=== PATIENT | male | born 1975 | race Caucasian/White ===

== ENCOUNTER → 2017-10-15 | Outpatient (CLI) | payer BC ==
[2017-10-15 08:30] LABS: BASOPHILS % (AUTO) 0 % (0-10); EOSINOPHILS # (AUTO) 0.2 10^3/uL (0.0-0.3); EOSINOPHILS % (AUTO) 2 % (0-10); HEMATOCRIT 45 % (40-54); HEMOGLOBIN 15.4 G/DL (13.3-17.7); LYMPHOCYTES # (AUTO) 1.7 X 10^3 (1.0-4.0); LYMPHOCYTES % (AUTO) 20 % (12-44); MEAN CORPUSCULAR HEMOGLOBIN 31 PG (25-34); MEAN CORPUSCULAR HGB CONC 35 G/DL (32-36); MEAN CORPUSCULAR VOLUME 91 FL (80-99); MEAN PLATELET VOLUME 8.7 FL (7.4-10.4); MONOCYTES # (AUTO) 0.6 X 10^3 (0.0-1.0); MONOCYTES % (AUTO) 7 % (0-12); NEUTROPHILS % (AUTO) 71 % (42-75); PLATELET COUNT 196 10^3/uL (130-400); RED BLOOD COUNT 4.94 10^6/uL (4.35-5.85); WHITE BLOOD COUNT 8.5 10^3/uL (4.3-11.0)
[2017-10-15 08:55] LABS: ALANINE AMINOTRANSFERASE 24 U/L (0-55); ALBUMIN 4.2 GM/DL (3.2-4.5); ALKALINE PHOSPHATASE 66 U/L (40-136); BILIRUBIN,TOTAL 0.4 MG/DL (0.1-1.0); BUN/CREATININE RATIO 36; CALCIUM 9.1 MG/DL (8.5-10.1); CARBON DIOXIDE 24 MMOL/L (21-32); CHLORIDE 111 MMOL/L (98-107); CHOLESTEROL 181 MG/DL (< 200); CREATININE SERUM 0.73 MG/DL (0.60-1.30); GFR ESTIMATED > 60; GLUCOSE 98 MG/DL (70-105); HDL CHOLESTEROL 39 MG/DL (40-60); POTASSIUM 4.3 MMOL/L (3.6-5.0); SODIUM 140 MMOL/L (135-145); TOTAL PROTEIN 6.9 GM/DL (6.4-8.2); TRIGLYCERIDES 113 MG/DL (<150); VLDL CHOLESTEROL 23 MG/DL (5-40)
== END ==
LOC: LAB 07:52
PROVIDERS: ATTEND Nurse Practitioner Family
DX: G80.1 Spastic diplegic cerebral palsy (principal); F33.0 Major depressive disorder, recurrent, mild; F41.1 Generalized anxiety disorder; Z72.0 Tobacco use
CPT/HCPCS: 36415; 80053; 80061; 84443; 85025

== ENCOUNTER → 2018-11-26 | Outpatient (CLI) | payer BC ==
--- NOTE | 2018-11-26 09:12 | Diagnostic Imaging Report ---
INDICATION: Pain along the lateral aspect of the right foot. 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 There is moderate degenerative disease. No fractures or acute bony changes are demonstrated. No periosteal reactive changes. IMPRESSION: Clubfoot deformity as described with no acute abnormalities. Moderate degenerative change is noted along the fifth metatarsal/tarsal joint with some subluxation. Dictated by: Dictated on workstation # [id number]
== END ==
LOC: RAD 08:26
PROVIDERS: ATTEND Nurse Practitioner Family
DX: M21.541 Acquired clubfoot, right foot (principal); M19.071 Primary osteoarthritis, right ankle and foot; S93.301A Unspecified subluxation of right foot, initial encounter
CPT/HCPCS: 73630

== ENCOUNTER 2018-12-27 21:00 | Emergency (ER) | payer BC ==
[~2018-12-27] VITALS: Ht 177.8 cm; Wt 34.5 kg
[2018-12-27] MEDS ORDERED: IBUP-1780 (21:21)
[2018-12-27] MEDS ORDERED: LIDOCAINE 1% INJ 20 ML 20 ML VIAL INJ STA (21:21)
[2018-12-27] MEDS ORDERED: DIAZ5TAB3 (21:21)
[2018-12-27] MEDS ORDERED: PARO20TA5 (21:21)
[2018-12-27] MEDS ORDERED: RANI150T11 (21:21)
[2018-12-27] MEDS ORDERED: TRAM50TA2 (21:21)
[2018-12-27] MEDS ORDERED: MIRT15TA6 (21:21)
--- NOTE | 2018-12-27 21:22 | NUR ---
left temporal wound cleansed with hibiclens and saline. pt tolerated well
--- NOTE | 2018-12-27 21:28 | ED Fall/Injury ---
General Chief Complaint: Laceration Stated Complaint: PT FELL AT HOME Nursing Triage Note: pt fell from standing position on front porch after getting legs tangled, no loc, no bleeding upon arrival to ed Source: patient, EMS History of Present Illness Date Seen by Provider: Dec 27, 2018 Time Seen by Provider: 21:02 Initial Comments 43-year-old male presenting with laceration to his left parietal scalp after a fall on his porch at home. He presents by EMS after having that fall and injury. He denies having any loss of consciousness. The fall occurred just prior to arrival. He had hit his head against a brick that was on the porch. He has no nausea or vomiting. He has no change in his vision. He feels that his last tetanus shot was more than 5 years ago. He has no other injuries from the fall. He has no drainage from his nose or ears. Allergies and Home Medications Allergies Coded Allergies: No Known Drug Allergies (Unverified , 12/27/18) Patient Home Medication List Home Medication List Reviewed: Yes Review of Systems Review of Systems Constitutional: No chills, No dizziness, No fever Eyes: Denies Blurred Vision, Denies Photophobia, Denies Vision Changes Ears, Nose, Mouth, Throat: denies ear pain, denies ear discharge, denies nose discharge, denies epistaxis Respiratory: no symptoms reported Cardiovascular: no symptoms reported Gastrointestinal: no symptoms reported; No nausea, No vomiting Genitourinary: no symptoms reported Musculoskeletal: other (chronic foot pain but nothing new since the fall) Skin: other (scalp laceration) Psychiatric/Neurological: Headache (mild headache from the fall) Past Kezfqli-Zjujjk-Huiiac Hx Past Med/Social Hx: Reviewed Nursing Past Med/Soc Hx Patient Social History Alcohol Use: Occasionally Uses Recreational Drug Use: No Smoking Status: Current Everyday Smoker Type Used: Cigarettes Recent Foreign Travel: No Contact w/Someone Who Travel: No Recent Infectious Disease Expo: No Recent Hopitalizations: No Physical Abuse: No Sexual Abuse: No Mistreated: No Fear: No Seasonal Allergies Seasonal Allergies: No Past Medical History Surgeries: No Respiratory: No Cardiac: No Neurological: Yes Cerebral Palsy Genitourinary: No Gastrointestinal: No Musculoskeletal: No Endocrine: No HEENT: No Cancer: No Psychosocial: No Integumentary: No Blood Disorders: No Physical Exam Vital Signs Vital Signs - First Documented 12/27/18 21:12 Temp 37.0 Pulse 66 Resp 16 B/P (MAP) 130/80 (97) Pulse Ox 98 O2 Delivery Room Air Capillary Refill : Less Than 3 Seconds Height, Weight, BMI Height: '" Weight: lbs. oz. kg; 10.00 BMI Method: General Appearance: WD/WN, no apparent distress HEENT: PERRL/EOMI, normal ENT inspection, TMs normal, pharynx normal, other (2.9 cm scalp laceration to the left parietal scalp) Neck: non-tender, full range of motion, supple, normal inspection Neurologic/Psychiatric: alert, normal mood/affect, oriented x 3 Skin: warm/dry, other (2.9 cm scalp laceration to the left parietal scalp) Procedures/Interventions Wound Location: Scalp (left parietal) Wound Length (cm): 2.9 Wound's Depth, Shape: sub Q Wound Explored: clean Anesthesia: 1% Lidocaine Volume Anesthetic (ccs): 10 Staple Repair: Stapler 35W Number of Sutures: 8 Layer Closure?: 1 Progress After obtaining verbal consent the wound was anesthetized with 1% plain lidocaine. Then using sterile saline and chlorhexidine soap the wound was cleaned. Then using a stapler the wound edges were approximated with 8 interrupted shailesh. He tolerated the procedure well without any immediate complications. Counseled on care of the shailesh and wound. Recommend staple removal in 7-10 days. Progress/Results/Core Measures Results/Orders My Orders Orders - FRANCO PAGAN MD Lidocaine 1% Inj 20 Ml (Xylocaine 1% Inj (12/27/18 21:21) Dipht,Pertuss(Acell),Tet Adult (Boostrix (12/27/18 21:30) Head Of Bed Q4H (12/27/18 21:21) Medications Given in ED Current Medications Medications Dose Ordered Sig/Etienne Route Start Time Stop Time Status Last Admin Dose Admin Diphtheria/ Tetanus/Acell Pertussis 0.5 ml ONCE ONCE IM 12/27/18 21:30 12/27/18 21:31 DC 12/27/18 21:30 0.5 ML Vital Signs/I&O 12/27/18 12/27/18 21:12 22:10 Temp 37.0 Pulse 66 61 Resp 16 16 B/P (MAP) 130/80 (97) 131/83 Pulse Ox 98 96 O2 Delivery Room Air Room Air Blood Pressure Mean: 97 Progress Progress Note : Progress Note Wound was cleaned with chlorhexidine and sterile water. No foreign bodies visualized. After obtaining verbal consent the wound was anesthetized with 1% plain lidocaine. Then using a skin stapler the wound edges were approximated and sealed with shailesh. Departure Impression Primary Impression: Laceration of scalp without foreign body Qualified Codes: S01.01XA - Laceration without foreign body of scalp, in itial encounter Additional Impression: Fall at home Qualified Codes: W19.XXXA - Unspecified fall, initial encounter; Y92.009 - Unspecified place in unspecified non-institutional (private) residence as the place of occurrence of the external cause Disposition: HOME, SELF-CARE Condition: Stable Departure-Patient Inst. Decision time for Depature: 22:00 Referrals: MAEVE GODFREY MD (PCP/Family) Primary Care Physician Patient Instructions: Laceration Repair With Shailesh (DC), Diphtheria and Tetanus Toxoids, and Acellular Pertussis Vaccine Add. Discharge Instructions: Keep wound clean and dry for the first 24 hours. After that you may wash it like normal but do not soak it. You may apply antibiotic ointment 2-3 times a day as needed to help it heal. The shailesh can be removed in 7-10 days. Try to keep your head elevated when you sleep or rest for the next 2-3 days to help prevent swelling and bruising. You may apply ice for 15-20 minutes every few hours as needed to help with pain and swelling as well. All discharge instructions reviewed with patient and/or family. Voiced understanding. FRANCO PAGAN MD Dec 27, 2018 21:28
[2018-12-27] MEDS ORDERED: TETANUS,DIPTH,PERTUSS P/F (BOOSTRIX) 0.5 ML VIAL IM ONE (21:30)
[2018-12-27 22:10] VITALS: BP 131/83
== END 2018-12-27 22:10 | disposition home or self-care (01) ==
LOC: EDUNIT# 21:00 → ER FS 21:04
DX: S01.01XA Laceration without foreign body of scalp, initial encounter (principal); G80.9 Cerebral palsy, unspecified; F17.210 Nicotine dependence, cigarettes, uncomplicated; Z23 Encounter for immunization; W22.8XXA Striking against or struck by other objects, initial encounter; W19.XXXA Unspecified fall, initial encounter; Y92.009 Unspecified place in unspecified non-institutional (private) residence as the place of occurrence of the external cause
CPT/HCPCS: 90715

== ENCOUNTER 2019-01-05 17:59 | Emergency (ER) | payer BC ==
[~2019-01-05] VITALS: Ht 177.8 cm; Wt 34.5 kg
[~2019-01-05 17:59] MED LIST: DIAZ5TAB3; IBUP-1780; MIRT15TA6; PARO20TA5; RANI150T11; TRAM50TA2
[2019-01-05 18:15] VITALS: BP 117/80
--- NOTE | 2019-01-05 18:15 | ED Suture Removal/Wound Check ---
Suture/Wound Re-check Suture Removal/Wound Recheck : Suture Removal/Wound Recheck: Swathi removed by RN Progress Swathi placed 9 days ago when patient had a fall on his porch and came to the ED. I had seen him that night and placed 8 swathi. He has had no problems or complaints. He presents tonight to have them removed. General Appearance: WD/WN, no apparent distress Neuro/Tendon: normal sensation, normal motor functions Skin Exam: normal color, warm/dry Physical Exam Vital Signs Capillary Refill : General Appearance: WD/WN, no apparent distress HEENT: other (wound appears well healed without erythema or signs of infection) Neurologic/Psychiatric: alert, normal mood/affect, oriented x 3 Skin: normal color, warm/dry Departure Impression Primary Impression: Encounter for staple removal Disposition: 01 HOME, SELF-CARE Condition: Stable Departure-Patient Inst. Decision time for Depature: 18:17 Referrals: MAEVE GODFREY MD (PCP) Primary Care Physician Patient Instructions: STAPLE REMOVAL-UNCOMPLICATED FRANCO PAGAN MD Jan 05, 2019 18:14
== END 2019-01-05 18:15 | disposition home or self-care (01) ==
LOC: EDUNIT# 17:59 → ER FS 18:01
DX: S01.81XD Laceration without foreign body of other part of head, subsequent encounter (principal); W19.XXXD Unspecified fall, subsequent encounter

== ENCOUNTER → 2019-04-10 | Outpatient (CLI) | payer BC ==
[~2019-04-10] MED LIST changes: -DIAZ5TAB3; +DIAZ5TAB49; -TRAM50TA2; +TRM50T
--- NOTE | 2019-04-10 09:44 | Diagnostic Imaging Report ---
PROCEDURE: CT right lower extremity without contrast. TECHNIQUE: Axially acquired CT was obtained through the right lower extremity without intravenous contrast. Coronal and sagittal reformations were also performed. Auto Exposure Controls were utilized during the CT exam to meet ALARA standards for radiation dose reduction. INDICATION: Right foot fracture since November. Continued pain. Cavovarus deformity of the foot. COMPARISON: Radiographs from 11/26/2018 FINDINGS: The cavovarus deformity of the right foot is again seen. There is a chronic appearing mildly displaced fracture at the base of the fifth metatarsal, with degenerative changes between the fracture fragment and the cuboid. The fracture appears to extend into the articular surface. There is also a chronic appearing nondisplaced fracture at the medial talus at the posterior subtalar joint. No acute fracture or dislocation is seen. No focal muscular atrophy is seen. There is mild superficial soft tissue edema at the dorsal aspect of the midfoot and forefoot. The tendons and ligaments are suboptimally evaluated by CT. IMPRESSION: 1. Chronic-appearing mildly displaced intra-articular fracture at the base of the right fifth metatarsal, with degenerative change between the fracture fragment in the cuboid. 2. Chronic appearing nondisplaced fracture of the medial talus at the posterior subtalar joint. 3. 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 No acute fracture is identified. Dictated by: Dictated on workstation # [id number]
== END ==
LOC: RAD FS 08:19
PROVIDERS: ATTEND Physician Assistant
DX: Q66.11 Congenital talipes calcaneovarus, right foot (principal); S92.351K Displaced fracture of fifth metatarsal bone, right foot, subsequent encounter for fracture with nonunion
CPT/HCPCS: 73700

== ENCOUNTER → 2019-10-10 | Outpatient (CLI) | payer BC | LOC: CARD 11:08 | PROVIDERS: ATTEND Internal Medicine Cardiovascular Disease | DX: R00.0 Tachycardia, unspecified (principal); Z72.0 Tobacco use; Z86.69 Personal history of other diseases of the nervous system and sense organs | CPT/HCPCS: 93225; 93226; 93306 ==

== ENCOUNTER → 2019-10-13 | Outpatient (CLI) | payer BC ==
[2019-10-13 11:20] LABS: HEMATOCRIT 48 % (40-54); HEMOGLOBIN 16.3 G/DL (13.3-17.7); MEAN CORPUSCULAR HEMOGLOBIN 31 PG (25-34); WHITE BLOOD COUNT 10.4 10^3/uL (4.3-11.0)
[2019-10-13 11:21] LABS: BASOPHILS % (AUTO) 0 % (0-10); EOSINOPHILS # (AUTO) 0.2 10^3/uL (0.0-0.3); EOSINOPHILS % (AUTO) 2 % (0-10); LYMPHOCYTES # (AUTO) 1.9 X 10^3 (1.0-4.0); LYMPHOCYTES % (AUTO) 18 % (12-44); MEAN CORPUSCULAR HGB CONC 34 G/DL (32-36); MEAN CORPUSCULAR VOLUME 91 FL (80-99); MEAN PLATELET VOLUME 8.9 FL (7.4-10.4); MONOCYTES # (AUTO) 0.7 X 10^3 (0.0-1.0); MONOCYTES % (AUTO) 7 % (0-12); NEUTROPHILS # (AUTO) 7.6 X 10^3 (1.8-7.8); NEUTROPHILS % (AUTO) 73 % (42-75); PLATELET COUNT 232 10^3/uL (130-400); RED CELL DISTRIBUTION WIDTH 12.1 % (10.0-14.5)
[2019-10-13 12:30] LABS: ERYTHROCYTE SEDIMENTATION RATE 4 MM/HR (0-15)
[2019-10-13 12:31] LABS: BUN/CREATININE RATIO 22; CALCIUM 9.6 MG/DL (8.5-10.1); CARBON DIOXIDE 25 MMOL/L (21-32); CHLORIDE 104 MMOL/L (98-107); CREATININE SERUM 0.83 MG/DL (0.60-1.30); GFR ESTIMATED > 60; GLUCOSE 97 MG/DL (70-105); MAGNESIUM 2.3 MG/DL (1.6-2.4); POTASSIUM 4.4 MMOL/L (3.6-5.0); SODIUM 141 MMOL/L (135-145)
[2019-10-13 12:38] LABS: ALANINE AMINOTRANSFERASE 33 U/L (0-55); ALBUMIN 4.5 GM/DL (3.2-4.5); ALKALINE PHOSPHATASE 94 U/L (40-136); BILIRUBIN,TOTAL 0.3 MG/DL (0.1-1.0); TOTAL PROTEIN 7.5 GM/DL (6.4-8.2)
[2019-10-13 14:46] LABS: TRIGLYCERIDES 126 MG/DL (<150); VLDL CHOLESTEROL 25 MG/DL (5-40)
[2019-10-13 14:51] LABS: CHOLESTEROL 194 MG/DL (< 200)
[2019-10-13 14:52] LABS: HDL CHOLESTEROL 36 MG/DL (40-60)
== END ==
LOC: LAB FS 10:26
PROVIDERS: ATTEND Internal Medicine Cardiovascular Disease
DX: R00.0 Tachycardia, unspecified (principal); Z72.0 Tobacco use; Z86.69 Personal history of other diseases of the nervous system and sense organs
CPT/HCPCS: 36415; 80053; 80061; 83735; 84443; 85025; 85652